=== PATIENT | male | born 1995 | race Caucasian/White ===

== ENCOUNTER 2020-12-25 09:22 | Emergency (ER) | payer OTHER, SELFPAY ==
[2020-12-25 09:31] VITALS: BP 158/92; PULSE 99; RESP 16; TEMP 36.1; O2SAT 99
--- NOTE | 2020-12-25 09:51 | ED.GENADULT ---
HPI - General Adult General Chief complaint: Dental/Oral Stated complaint: throat swelling History of Present Illness HPI narrative: This is a 25-year-old male that comes in complaining gum pain where his wisdom teeth were removed that and states that he thought he might have an infection and says that his lymph nodes under his chin is swollen. Patient states that this has been going on for approximately 10 days. Patient states he was seen by dentist on Sunday who found nothing wrong. Patient states blood pressure has been elevated for a while does not have a primary care provider at this time list will be given. Patient denies any headache any dizziness any nausea or any vomiting. Related Data Home Medications Medication Instructions Recorded Confirmed bupropion HCl 450 mg PO DAILY 12/25/20 12/25/20 venlafaxine [Effexor] 25 mg PO BID 12/25/20 12/25/20 Allergies Allergy/AdvReac Type Severity Reaction Status Date / Time amoxicillin Allergy Other Verified 12/25/20 09:40 Review of Systems Review of Systems: Narrative: CONSTITUTIONAL: Denies fever, chills, or sweats. EYES: Denies visual changes, redness, or discharge. ENT: Denies rhinorrhea, congestion, sore throat, or otalgia. Left-sided gum pain where wisdom teeth were removed CARDIOVASCULAR:Denies chest pain, palpitations, or edema. RESPIRATORY: Denies cough or dyspnea. GASTROINTESTINAL: Denies abdominal pain, nausea, vomiting, or diarrhea. GENITOURINARY: Denies dysuria or hematuria. SKIN:Denies rash or itching. MUSCULOSKELETAL:Denies back pain, joint pain, or myalgia. NEUROLOGIC: Denies headache, numbness, or weakness. PSYCHIATRIC:Denies anxiety or depression PMFSH Comments At time as signature, I have reviewed and agree with nursing past medical, social, surgical and family history. Please see nursing chart for further information. There is no relevant family history pertinent to the presenting complaint. Exam Narrative: Exam Narrative: GENERAL:Well-appearing, well-nourished, and in no acute distress. HEAD:Normocephalic, atraumatic. EYES: PERRLA and EOMI. ENT: Nares clear, no rhinorrhea or epistaxis. Mucous membranes moist. Not able to see any edema erythema no nodules noted under chin NECK: Supple. CHEST: Clear to auscultation. No respiratory distress. HEART: Regular rate and rhythm. No murmur heard. Normal peripheral pulses. ABDOMEN: Soft, nontender, nondistended, normal active bowel sounds. EXTREMITIES: Normal range of motion. No edema. SKIN: Warm, dry, no rash. NEURO: No focal deficits. Alert and oriented x3. Course MANUFACTURING TECHNICIAN/PA Physician Supervision At this time I do not find any infections ordered patient something for pain and some swish and swallow Vital Signs Vital signs: Vital Signs Temperature 97 F L 12/25/20 09:31 Pulse Rate 99 12/25/20 09:31 Respiratory Rate 16 12/25/20 09:31 Blood Pressure 158/92 H 12/25/20 09:31 Pulse Oximetry 99 12/25/20 09:31 Temperature 97 F L 12/25/20 09:31 Pulse Rate 99 12/25/20 09:31 Respiratory Rate 16 12/25/20 09:31 Blood Pressure 142/90 H 12/25/20 10:20 Pulse Oximetry 99 12/25/20 09:31 Medical Decision Making Vital Signs Vital Signs: Vital Signs Temperature 97 F L 12/25/20 09:31 Pulse Rate 99 12/25/20 09:31 Respiratory Rate 16 12/25/20 09:31 Blood Pressure 158/92 H 12/25/20 09:31 Pulse Oximetry 99 12/25/20 09:31 Temperature 97 F L 12/25/20 09:31 Pulse Rate 99 12/25/20 09:31 Respiratory Rate 16 12/25/20 09:31 Blood Pressure 142/90 H 12/25/20 10:20 Pulse Oximetry 99 12/25/20 09:31 Discharge Plan Discharge Clinical Impression: Toothache, Hypertension Patient Disposition: Home, Self-Care Condition: Stable Instructions: Antibiotic Form, Gingivostomatitis (ED) Additional Instructions: instructions antibiotic as directed Avoid temperature extremes May apply heat or ice to the face Gentle brushing and flossing Alternat
[2020-12-25 10:20] VITALS: BP 142/90
== END 2020-12-25 10:16 | disposition home or self-care (01) ==
PROVIDERS: Emergency Provider Nurse Practitioner Family
DX: K08.89 Other specified disorders of teeth and supporting structures (principal); I10 Essential (primary) hypertension; F41.9 Anxiety disorder, unspecified; F32.9 Major depressive disorder, single episode, unspecified
CPT/HCPCS: 99213; G0463